=== PATIENT | female | born 1975 | race African-American/Black ===

== ENCOUNTER 2017-11-21 09:22 | Inpatient (IN) | payer OTHER ==
[2017-11-21 09:52] VITALS: BMI 31.4
[2017-11-21] MEDS ORDERED: Acetaminophen 500 MG TAB PO SCH (10:45)
[2017-11-21] MEDS ORDERED: Morphine 10 MG/ML VIAL IM SCH (10:45)
[2017-11-21] MEDS ORDERED: Ondansetron HCl/PF 4 MG/2 ML Vial IVP PRN ×2 (10:56→17:08)
[2017-11-21] MEDS ORDERED: Lactated Ringer's 1,000 ML IV SCH (11:00)
[2017-11-21 11:31] LABS: Hemoglobin 9.4 g/dL (12.0-16.0); Mean Corpuscular HGB CONC 32.4 g/dL (32.0-36.0); Mean Corpuscular Hemoglobin 27.8 pg (27.0-31.0); Mean Corpuscular Volume 85.7 fL (78.0-98.0); RBC Distribution Width 12.7 % (11.5-14.5); Red Blood Cell (RBC) Count 3.37 mill/uL (4.20-5.40); White Blood Cell (WBC) Count 15.1 thou/uL (4.8-10.8)
[2017-11-21 11:36] LABS: INR-International Normal Ratio 1.2; PTT 27.3 SEC (22.9-36.1); Prothrombin Time 14.8 SEC (12.0-14.7)
[2017-11-21 11:44] LABS: Mean Platelet Volume 7.8 fL (7.4-10.4); Platelet Count 106 thou/uL (130-400)
[2017-11-21] MEDS ORDERED: Morphine 4 MG/ML VIAL ONE (11:44)
[2017-11-21] MEDS ORDERED: Morphine 4 MG/ML VIAL SLOW IVP SCH ×2 (11:45→15:30)
[2017-11-21 11:52] LABS: ALT (SGPT) 32 U/L (8-55); AST (SGOT) 29 U/L (5-34); Alkaline Phosphatase 60 U/L (40-150); Anion Gap 13 mmol/L (10-20); BUN (Urea Nitrogen) 5 mg/dL (7.0-18.7); Bilirubin, Total 0.5 mg/dL (0.2-1.2); Calc. Creatinine Clearance 165 mL/min (70-130); Carbon Dioxide 20 mmol/L (22-29); Chloride 106 mmol/L (98-107); Estimated GFR-MDRD Greater than 90; Globulin 2.6 g/dL (2.4-3.5); Glucose 96 mg/dL (70-105); Potassium 3.7 mmol/L (3.5-5.1); Protein, Total 6.6 g/dL (6.0-8.3); Sodium 135 mmol/L (136-145)
[2017-11-21] MEDS: Misoprostol 200 MCG TAB VAG SCH ×3 (11:53→18:19)
[2017-11-21] MEDS ORDERED: Labetalol HCl 100 MG/20 ML VIAL ONE (12:09)
[2017-11-21] MEDS ORDERED: Labetalol HCl 100 MG/20 ML VIAL SLOW IVP SCH ×2 (12:15→17:15)
--- NOTE | 2017-11-21 12:27 | HP ---
DATE OF SERVICE: 11/21/2017 PRIMARY OB: Dr. Buchanan HISTORY OF PRESENT ILLNESS: The patient is a 42-year-old female with an intrauterine at 22 weeks and 1 day, presenting with acute onset of abdominal pain after 2 o'clock this morning after having intercourse. The patient denies any vaginal bleeding, any leakage of fluid. She reports her pain is very intense and constant. The patient reports that she just discovered her in recent weeks and had her first visit a couple weeks ago at which time no heart tones were found. PAST MEDICAL HISTORY: Negative. PAST SURGICAL HISTORY: Negative. ALLERGIES: No known drug allergies. MEDICATIONS: vitamins. OB LABS: Unavailable. REVIEW OF SYSTEMS: The patient denies fever, fall, chest pain, shortness of breath, nausea, vomiting, diarrhea, constipation, new rashes, vaginal bleeding, leakage of fluid, urinary urgency or frequency, hip pain, knee pain, muscle weakness. PHYSICAL EXAMINATION: VITAL SIGNS: Blood pressure is 146/93, heart rate of 107, respiratory rate 18, satting 100% on room air, temperature 98.3. GENERAL: She appears to be in significant distress with pain. She is alert and oriented, cooperative and pleasant to interact with. HEENT: Head is normocephalic, atraumatic. LUNGS: Clear to auscultation bilaterally. HEART: Regular rate and rhythm and slightly tachycardic. ABDOMEN: Exquisitely tender on the right side and on the lower pelvis. EXTREMITIES: Nontender, nonedematous. PELVIC: Cervix is closed, with no bleeding. On bedside ultrasound placenta appears to be extremely enlarged with suspected concealed abruption and fetus has no heart tones. LABORATORY DATA: Available labs at this time show a white count of 15, hemoglobin 9.4, hematocrit 28.9, platelets of 106. PT of 14.8, INR 1.2, PTT of 27. Fibrinogen of 130. Urine drug screen positive for cocaine Review of record confirms heart tones and a negative drug screen just a couple weeks prior to this encounter. ASSESSMENT AND PLAN: The patient is a 42-year-old female with an intrauterine at 22 weeks by stated due date who has presented with what I believe is an acute abruption based on clinical symptoms, bedside ultrasound findings now being confirmed by available labs. The patient currently does have 2 IV sites, is being bolused IV fluids, had 4 units of packed red blood cells we will be transfusing to replace her dropping platelet and fibrinogen and other coagulation factors with appropriate blood products. We have also placed 400 mcg of Cytotec vaginally to proceed with induction. If the patient remains stable, we will proceed as planned. If not, we may need to consider alternate methods for delivery. Drug screen results reviewed with the patient. She denies cocaine use. States she is not in a healthy enviroment where she lives. Also states she was given 2 pills from a friend when she was not feeling well. She did not know what was in them. BRIDGERD
[2017-11-21] MEDS: Lactated Ringer's 1,000 ML IV SCH ×2 (12:49→17:50)
--- NOTE | 2017-11-21 13:22 | ULT ---
LIMITED OB ULTRASOUND: HISTORY: Intrauterine demise. Concern for abruption. COMPARISON: None. TECHNIQUE: Real-time izaguirre-scale, color Doppler, and spectral analysis of the gravid uterus was performed. FINDINGS: There are no heart tones demonstrated. There is a large heterogeneous mass interposed between the myometrium and what appears to be the placenta. This may reflect a contained abruption. Small v olume fluid within the cervix. IMPRESSION: 1. Intrauterine demise with no heart tones. 2. There appears to be a concealed abruption along the anterior wall with a large hematoma between t he myometrium and the placenta. The placenta is not well seen. Sindhu, the nurse taking care of the patient, was notified of the findings via telephone at 12:40 p.m. CODE CR POS: GILMAR
[2017-11-21 16:58] LABS: Amphetamine Not Detected (NotDetected); Barbiturates Screen Not Detected (NotDetected); Benzodiazepine Screen Not Detected (NotDetected); Cocaine Metabolite Screen Detected (NotDetected); Medtox Control Line Valid? VALID (VALID); Medtox Reader # READER 4; Methadone Not Detected (NotDetected); Methamphetamine Not Detected (NotDetected); Opiate Screen Detected (NotDetected); Oxycodone Screen Not Detected (NotDetected); Phencyclidine (PCP) Not Detected (NotDetected); THC/Cannabinoid Screen Not Detected (NotDetected); Tricyclic Screen Not Detected (NotDetected)
[2017-11-21] MEDS ORDERED: Promethazine HCl 25 MG/ML VIAL IM PRN (17:08)
[2017-11-21] MEDS ORDERED: Zolpidem Tartrate 5 MG TAB PO PRN (17:08)
[2017-11-21] MEDS ORDERED: diphenhydrAMINE 50 MG/ML VIAL IVP PRN (17:08)
[2017-11-21] MEDS ORDERED: Naloxone HCl 0.4 mg/ml Vial IV PRN (17:08)
[2017-11-21] MEDS ORDERED: diphenhydrAMINE 50 MG/ML VIAL IM PRN (17:08)
[2017-11-21] MEDS ORDERED: diphenhydrAMINE 25 MG CAP PO PRN (17:08)
[2017-11-21] MEDS ORDERED: fentaNYL Citrate/PF 2,000 MCG in Sodium Chloride 0.9% 60 ML IV PRN (17:08)
[2017-11-21] MEDS ORDERED: Communication Order-Pharmacy FS SCH (17:15)
[2017-11-21 17:38] LABS: Fibrinogen 265 mg/dL (253-463); INR-International Normal Ratio 1.1; PTT 20.6 SEC (22.9-36.1); Prothrombin Time 14.5 SEC (12.0-14.7)
[2017-11-21 17:57] LABS: FSP-Qualitative ABNORMAL (Normal); FSP-Semiquantitative >=20 & <40 mcg/mL (Less than 5)
[2017-11-21 18:40] LABS: Band 3 % (5-11); Eosinophils 1 % (0-10); Hemoglobin 9.4 g/dL (12.0-16.0); Lymphocytes 2 % (21-51); MDiff Complete? YES; Mean Corpuscular Volume 85.3 fL (78.0-98.0); Monocytes 3 % (0-10); Neutrophil 91 % (42-75); PLT Morphology Comment Appears Decreased; Platelet Count 90 thou/uL (130-400); Red Blood Cell (RBC) Count 3.24 mill/uL (4.20-5.40); White Blood Cell (WBC) Count 14.2 thou/uL (4.8-10.8)
[2017-11-21] MEDS ORDERED: NIFEdipine XL 30 MG TAB PO SCH (19:15)
[2017-11-21] MEDS ORDERED: Lidocaine 1% (PF) 30 ML VIAL ONE (21:27)
[2017-11-21] MEDS ORDERED: NS / Oxytocin 40 units/1000ml 0 ML ONE (21:28)
[2017-11-22] MEDS ORDERED: Bisacodyl 10 MG SUPP PR PRN (01:43)
[2017-11-22] MEDS ORDERED: Zolpidem Tartrate 5 MG TAB PO PRN (01:43)
[2017-11-22] MEDS ORDERED: Milk Of Magnesia 30 ML UDCUP PO PRN (01:43)
[2017-11-22] MEDS ORDERED: NS / Oxytocin 40 units/1000ml 1,000 ML IV SCH (01:43)
[2017-11-22] MEDS ORDERED: Ondansetron HCl/PF 4 MG/2 ML Vial IVP PRN (01:43)
[2017-11-22] MEDS ORDERED: Adacel (T-DAP) 0.5 ML VIAL IM ONE (02:00)
[2017-11-22] MEDS: Misoprostol 200 MCG TAB VAG SCH (03:31)
[2017-11-22] MEDS: Ibuprofen 800 MG TAB PO SCH ×2 (04:54→15:11)
[2017-11-22 05:27] LABS: Hemoglobin 9.2 g/dL (12.0-16.0); Mean Corpuscular HGB CONC 34.2 g/dL (32.0-36.0); Mean Corpuscular Hemoglobin 29.2 pg (27.0-31.0); Mean Corpuscular Volume 85.4 fL (78.0-98.0); Mean Platelet Volume 8.5 fL (7.4-10.4); Platelet Count 97 thou/uL (130-400); Red Blood Cell (RBC) Count 3.13 mill/uL (4.20-5.40); White Blood Cell (WBC) Count 13.3 thou/uL (4.8-10.8)
--- NOTE | 2017-11-22 06:13 | OP ---
DATE OF SERVICE: 11/21/2017 PRIMARY OB: Dr. Claudy Buchanan at [facility] ER. PROCEDURE: The patient is a 42-year-old female who presented to Labor and Delivery with abdominal pa in and was noted to have an IUFD with a large abruption concealed abruption. She delivered a nonviab le male infant with a gestational age of 22 weeks on 11/21/2017 at 2126 by vaginal delivery. Followi ng delivery of the baby placenta delivered with large consolidated clot formation behind all the plac ental bed, bleeding was moderate to minimal at time of delivery for a short period of time and was qu ickly placed under control. There were no lacerations. Quantitative blood loss is pending; however, estimated blood loss is around 300 mL of clot and 100 mL of liquid blood. Dr. Cuadra is the [facility] physician. Fetus appears normal with gross inspection. Placenta sent to pathology. The patien t is stable in the .
--- NOTE | 2017-11-22 08:50 | DIS ---
DATE OF ADMISSION: 11/21/2017 DATE OF DISCHARGE: 11/22/2017 ADMITTING DIAGNOSES: 1. Intrauterine . 2. Concealed abruption. DISCHARGE DIAGNOSES: 1. Intrauterine . 2. Concealed abruption. PROCEDURE: Blood transfusion 1 unit of packed red blood cells, 10 units of cryoprecipitate, nonviabl e vaginal delivery. CONSULTATIONS: None. HOSPITAL COURSE: The patient is a 42-year-old female who presented to Labor and Delivery with acute onset of abdominal pain beginning earlier on the morning of arrival. On evaluation, patient was note d to have an IUFD with what appeared to be a concealed abruption. Workup confirmed our suspicions wi th fibrinogen in the 100s, platelets 106, slightly elevated PTT and INR. The patient during her stay was transfused 1 unit of packed red blood cells and 10 units of cryoprecipitate. Patient was induce d by Cytotec and ultimately delivered a nonviable male fetus with the placenta. Evaluation of the pl acenta showed a complete abruption with large consolidative clots at the bed. The fetus otherwise ap peared to have a normal anatomy grossly. Her workup also included a drug screen positive for cocaine , which the patient denies taking. Delivery was uncomplicated and the patient did not have any exces sive bleeding. After delivery and recovery, patient was sent to the for continued care. Today is day 1. The patient reports that she is tolerating p.o., voiding on her own, havi ng good pain control and decreased lochia. The patient is still tearful of the events that have just followed and desire discharge home. DISCHARGE PHYSICAL EXAMINATION: VITAL SIGNS: Blood pressure is 126/77, temperature 99.1, pulse of 89, respiratory rate of 16. GENERAL: She appears to be in no acute distress. She is alert and oriented, cooperative and pleasan t to interact with. HEAD: Normocephalic, atraumatic. ABDOMEN: Fundus is firm. EXTREMITIES: Nontender, nonedematous. LABORATORY DATA: Her post-delivery hemoglobin is 9.2, hematocrit 26.7, platelets 97,000. DISCHARGE INSTRUCTIONS: The patient is being discharged to home with ibuprofen to be taken as needed for pain. She has instructions to follow up with her primary OB, Dr. Buchanan in 1-2 weeks. She has b een given instructions to seek medical attention sooner if she experiences pain, increasing bleeding or fever.
[2017-11-22] MEDS ORDERED: Docusate Calcium (SURFAK) 240 MG CAP PO SCH (09:00)
[2017-11-22] MEDS ORDERED: NIFEdipine XL 30 MG TAB PO SCH (09:00)
[2017-11-22] MEDS: Ferrous Sulfate 325 MG TAB PO SCH ×2 (09:41→17:34)
[2017-11-22 16:59] VITALS: BP 123/78; TEMP 98.9
[2017-11-22] MEDS ORDERED: Measles/Mumps/Rubella 10 MCG/0.5 ML VIAL SC ONE (17:30)
== END 2017-11-22 18:00 | disposition home or self-care (01) | DRG 774 ==
LOC: L&D/OP 09:22 → L&D 12:11 → 3SE 11-22 00:52
PROVIDERS: ADMIT Obstetrics & Gynecology; ATTEND Obstetrics & Gynecology
PROC: 10E0XZZ Delivery of Products of Conception, External Approach (ICD-10-PCS; principal; 2017-11-21)
PROC: 30233N1 Transfusion of Nonautologous Red Blood Cells into Peripheral Vein, Percutaneous Approach (ICD-10-PCS; 2017-11-21)
PROC: 3E0P7VZ Introduction of Hormone into Female Reproductive, Via Natural or Artificial Opening (ICD-10-PCS; 2017-11-21)
DX: O45.92 Premature separation of placenta, unspecified, second trimester (principal); O36.4XX0 Maternal care for intrauterine death, not applicable or unspecified; Z3A.22 22 weeks gestation of pregnancy; Z37.1 Single stillbirth
CPT/HCPCS: 36415; 36430; 51702; 76815; 80053; 80306; 85027; 85362; 85384; 85610; 85730; 86850; 86900; 86901; 90707; 99285; J2001; J2270; J2405; J3010; J7050; P9012; P9016

== ENCOUNTER 2018-10-23 14:56 | Emergency (ER) | payer OTHER ==
[2018-10-23 16:10] LABS: #Eosinphils 0.2 thou/uL (0.0-0.7); #Lymphocytes 1.9 thou/uL (1.20-3.40); #Monocytes 0.9 thou/uL (0.11-0.59); #Neutrophils 4.8 thou/uL (1.40-6.50); %Basophils 0.6 % (0.0-1.0); %Eosinophils 2.3 % (0.0-10.0); %Lymphocytes 23.9 % (21.0-51.0); %Monocytes 11.8 % (0.0-10.0); %Neutrophils 61.3 % (42.0-75.0); Hemoglobin 11.5 g/dL (12.0-16.0); Mean Corpuscular Hemoglobin 28.6 pg (27.0-31.0); Mean Corpuscular Volume 86.6 fL (78.0-98.0); Mean Platelet Volume 7.3 fL (7.4-10.4); Platelet Count 245 thou/uL (130-400); RBC Distribution Width 12.9 % (11.5-14.5); Red Blood Cell (RBC) Count 4.03 mill/uL (4.20-5.40); White Blood Cell (WBC) Count 7.8 thou/uL (4.8-10.8)
[2018-10-23 16:33] LABS: ALT (SGPT) 18 U/L (8-55); AST (SGOT) 15 U/L (5-34); Albumin 3.7 g/dL (3.5-5.0); Alkaline Phosphatase 31 U/L (40-150); Anion Gap 11 mmol/L (10-20); BUN (Urea Nitrogen) 6 mg/dL (7.0-18.7); Bilirubin, Total 0.2 mg/dL (0.2-1.2); Calc. Creatinine Clearance 0 mL/min (70-130); Calcium 9.7 mg/dL (7.8-10.44); Carbon Dioxide 20 mmol/L (22-29); Chloride 108 mmol/L (98-107); Estimated GFR-MDRD Greater than 90; Globulin 2.8 g/dL (2.4-3.5); Glucose 107 mg/dL (70-105); Potassium 3.7 mmol/L (3.5-5.1); Protein, Total 6.5 g/dL (6.0-8.3); Sodium 135 mmol/L (136-145)
[2018-10-23 16:40] LABS: Bilirubin Negative (Negative); Blood, Urine Trace (Negative); Clarity Clear (Clear); Glucose, Urine (Dipstick) Normal (Negative); Leukocyte Negative Leu/uL (Negative); Nitrite Negative (Negative); Protein, Urine (Dipstick) 10 mg/dL (Neg-Trace); Urobilinogen Normal mg/dL (Less than 2); WBC/HPF 0-3 HPF (0-3)
[2018-10-23 16:46] LABS: Bacteria/HPF None Seen HPF (None Seen)
== END 2018-10-23 19:00 | disposition home or self-care (01) ==
LOC: ERS 14:56
DX: O16.2 Unspecified maternal hypertension, second trimester (principal); Z3A.14 14 weeks gestation of pregnancy
CPT/HCPCS: 36415; 80053; 81003; 85025; 96360

== ENCOUNTER 2018-11-25 13:23 | Outpatient (CLI) | payer OTHER ==
--- NOTE | 2018-11-25 15:13 | ULT ---
Obstetric sonogram HISTORY: evaluation. Second trimester gestation. FINDINGS: Cephalic presentation. Cervix is closed and 4.1 cm. Amniotic fluid is within normal limits. Grade 0 placenta is posterior. No gross intracranial abnormalities. spine and kidneys are intact as visualized. Three-vessel cord shows a normal insertion. Four-chamber heart shows motion at 142 bpm. Measurements are as follows: Biparietal diameter 19 weeks 5 days. Head circumference 19 weeks 3 days. Abdominal circumference 19 weeks 3 days. Femur length 19 weeks 4 days. [place] 17th percentile. Estimated date of delivery based on today's sonogram 04/17/2019. IMPRESSION: Single viable intrauterine gestation. Estimated gestational age based on today's sonogram 19 weeks 4 days.
== END 2018-11-25 13:24 | disposition home or self-care (01) ==
LOC: BICULT 13:23
PROVIDERS: ATTEND Family Medicine
DX: Z34.82 Encounter for supervision of other normal pregnancy, second trimester (principal); Z3A.19 19 weeks gestation of pregnancy
CPT/HCPCS: 76805

== ENCOUNTER 2018-11-30 18:28 | Emergency (ER) | payer OTHER | END 2018-11-30 20:45 | disposition home or self-care (01) | LOC: ERS 18:28 | DX: O99.612 Diseases of the digestive system complicating pregnancy, second trimester (principal); K04.7 Periapical abscess without sinus; K02.9 Dental caries, unspecified; Z3A.20 20 weeks gestation of pregnancy | CPT/HCPCS: 99282 ==

== ENCOUNTER 2019-02-24 15:44 | Day surgery (SDC) | payer OTHER ==
[2019-02-24 16:21] VITALS: BMI 35.0
--- NOTE | 2019-02-24 17:45 | ULT ---
US Biophysical Profile and umbilical artery ultrasound: 02/24/2019 4:26 PM CLINICAL HISTORY: Nonreactive stress test in doctor's office.. COMPARISON: None. FINDINGS: heart rate: 160 bpm. ZEINA: 13.3 cm Biophysical profile: 8 of 8 Ultrasound of the umbilical artery shows persistent flow in diastole with a normal systolic to diasto lic ratio. IMPRESSION: 1. Normal biophysical profile 2. Normal umbilical artery ultrasound
== END 2019-02-24 18:13 | disposition home health service (06) ==
LOC: L&D/OP 15:44
PROVIDERS: ATTEND Family Medicine
DX: Z01.89 Encounter for other specified special examinations (principal)
CPT/HCPCS: 76819; 93975

== ENCOUNTER 2019-03-13 12:51 | Day surgery (SDC) | payer OTHER ==
[2019-03-13] MEDS ORDERED: hydrALAZINE 20 MG/ML VIAL SLOW IVP PRN (14:38)
--- NOTE | 2019-03-13 14:38 | PDOC.EVN ---
Event Note - Event Note Event Note: OBGYN At Bedside. See full dictation.
--- NOTE | 2019-03-13 15:20 | PDOC.EVN ---
Event Note - Event Note Event Note: RN exam was closed/th/high....no LOF or VB. I have reviewed the FHT strip and seen the pateint. We are clear for DC to home. NST reactive.
--- NOTE | 2019-03-13 15:24 | HP ---
LOCATION: Recovery room in Labor and Delivery (as the LDR and triage rooms are full). TIME OF EVALUATION: Time of evaluation was roughly 1430 hours to 1447 hours. CHIEF COMPLAINT: Possible contractions at 35 weeks. This is a patient of Dr. Casiano. HISTORY OF PRESENT ILLNESS: This is a 43-year-old , G5, P4, living 4 (one history of an intrauterine demise at 25 weeks, which was her immediate past , and also one set of twins) who is currently with an EDC of 04/14/2020 given her EGA of 35 weeks and 3 days. She is here for possible irregular contractions. She denies vaginal bleeding or leakage of fluid. She has good movement. She denies any other medical complications up to this time. PAST MEDICAL HISTORY: Negative. PAST SURGICAL HISTORY: Negative. ALLERGIES: NONE. SOCIAL HISTORY: Significant for smoking prepregnancy, but none during this gestation. OB HISTORY: She has one set of twins, and her last ended in 25-week intrauterine demise. She has no births and all deliveries were vaginal. MEDICATIONS: None. PHYSICAL EXAMINATION: VITAL SIGNS: Her blood pressure is 120/75, pulse is in the 80s, respirations are 14 to 16 by observation and they are unlabored. GENERAL: The patient is in no acute distress. ABDOMEN: Size consistent with dates. PELVIC: There is no gross evidence of leakage of fluid or ruptured membranes or vaginal bleeding. Cervix is currently pending as aNbila, the patient's nurse, is about to perform that at bedside. I just left the bedside as the patient had to go urinate prior to the cervical exam. On the external monitor, heart tones are in the 130s to 140s with moderate variability and accelerations, there are no decelerations. No contractions on tocodynamometer, although there is some uterine irritability. ASSESSMENT: This is a 43-year-old , G5, P4, living 4, whose last ended in a 25-week demise, who is here at 35 weeks and 3 days for suspected few and irregular contractions. History is most compatible with [place]. PLAN: 1. Cervical assessment pending. 2. Nonstress test performed as antepartum surveillance and is reassuring. 3. No evidence of maternal or injury/harm at this time. 4. Her OB history was reviewed by me in person at bedside and the unpredictability of the demise was discussed with her, as occurred in the last gestation. 5. No evidence of a need for immediate induction at this time. 6. No evidence of preeclampsia. Job ID: [id number]
== END 2019-03-13 15:22 | disposition home health service (06) ==
LOC: L&D/OP 12:51
PROVIDERS: ATTEND Family Medicine
DX: O47.03 False labor before 37 completed weeks of gestation, third trimester (principal); O09.523 Supervision of elderly multigravida, third trimester; Z87.891 Personal history of nicotine dependence; Z3A.35 35 weeks gestation of pregnancy

== ENCOUNTER 2019-03-17 12:05 | Day surgery (SDC) | payer OTHER ==
[2019-03-17 12:26] VITALS: BP 136/86; TEMP 98.8
[2019-03-17 12:28] VITALS: BMI 35.2
[2019-03-17] MEDS ORDERED: hydrALAZINE 20 MG/ML VIAL SLOW IVP PRN (13:43)
--- NOTE | 2019-03-17 15:28 | ULT ---
BIOPHYSICAL PROFILE: INDICATIONS: Nonreactive NST in office. COMPARISON: Biophysical profile dated 02/24/2019. FINDINGS: There is a single live intrauterine gestation in vertex presentation. The placenta is seen along the right aspect of the uterus. ZEINA measures 13 cm. Cardiac activity is at 149 beats per minute. There is 2/2 for breathing. There is 2/2 for tone. There is 2/2 for movement. The amniotic fluid level is 2/2. Biophysical profile score is 8/8. IMPRESSION: Biophysical profile score 8/8. Verbal report was relayed by the dietetic technician registered to the L&D NurseSydney at the time of this exam.
--- NOTE | 2019-03-17 20:26 | HP ---
PRIMARY OB: Dr. Shon Casiano. CHIEF COMPLAINT: Nonreactive NST in clinic. HISTORY OF PRESENT ILLNESS: The patient is a 43-year-old, G5, P3 female with an intrauterine at 36 weeks and a history of gestational diabetes, presented to Labor and Delivery from the clinic after having a nonreactive NST. The patient denies any recent illness, fever, or fall. She does report she has had a cough. Denies nausea, vomiting. Denies diarrhea. Reports significant constipation. States that she goes about once every week and this has been for much for . The patient denies any new rashes, hip problems, knee problems, muscle weakness, vaginal bleeding, leakage of fluid, urinary urgency or frequency. PAST MEDICAL HISTORY: Negative. PAST SURGICAL HISTORY: Negative. ALLERGIES: NO KNOWN DRUG ALLERGIES. SOCIAL HISTORY: Reports history of smoking. Denies drug or alcohol use. MEDICATIONS: vitamins. Also significant, the patient has a history of a 25-week demise. OB LABS: Unavailable at the time of dictation. REVIEW OF SYSTEMS: Per HPI. PHYSICAL EXAMINATION: VITAL SIGNS: Blood pressure of 133/77, heart rate of 111, respiratory rate 18, saturating 100% on room air, temperature 99.0. GENERAL: She appears to be in no acute distress. She is alert, oriented, cooperative, and pleasant to interact with. HEAD: Normocephalic and atraumatic. LUNGS: Clear to auscultation bilaterally. HEART: Regular rate and rhythm. ABDOMEN: Gravid, soft, nontender. EXTREMITIES: Nontender, nonedematous. heart tracing shows a baseline in the 130s with moderate long-term variability, positive 15 x 15 accelerations, no significant decelerations. Tocometer is quiet with an isolated contraction. BPP is 8/8 with an ZEINA of 13. ASSESSMENT/PLAN: The patient is a 43-year-old female with an intrauterine at 36 weeks and a history of a 25-week demise and a nonreactive NST in clinic. Here, the patient is reassuring heart tracing and BPP. The patient is being discharged to home with labor precautions. She has an appointment with Dr. Casiano in the next week, which we have encouraged that she keep. Job ID: [id number]
== END 2019-03-17 14:00 | disposition home or self-care (01) ==
LOC: L&D/OP 12:05
PROVIDERS: ATTEND Family Medicine
DX: O36.8330 Maternal care for abnormalities of the fetal heart rate or rhythm, third trimester, not applicable or unspecified (principal); O24.419 Gestational diabetes mellitus in pregnancy, unspecified control; O09.523 Supervision of elderly multigravida, third trimester; O09.293 Supervision of pregnancy with other poor reproductive or obstetric history, third trimester; Z3A.36 36 weeks gestation of pregnancy; Z87.891 Personal history of nicotine dependence
CPT/HCPCS: 59025; 76819; 99282

== ENCOUNTER 2019-03-21 14:20 | Day surgery (SDC) | payer OTHER ==
[2019-03-21 14:48] VITALS: BP 131/83; TEMP 99.3; BMI 35.2
[2019-03-21] MEDS ORDERED: hydrALAZINE 20 MG/ML VIAL SLOW IVP PRN (14:55)
--- NOTE | 2019-03-21 16:52 | ULT ---
ULTRASOUND BIOPHYSICAL PROFILE: DATE: 03/21/2019 HISTORY: 43-year-old female with nonreactive nonstress test. FINDINGS: breathin tone: 2 movement: 2 Amniotic fluid volume: 2 heart rate: 147 bpm ZEINA: 10.5 cm lie: Vertex Placenta: Left lateral. IMPRESSION: Normal biophysical profile score of 8 out of 8, excluding the nonstress test.
== END 2019-03-21 16:36 | disposition home or self-care (01) ==
LOC: L&D/OP 14:20
PROVIDERS: ATTEND Family Medicine
DX: O36.8390 Maternal care for abnormalities of the fetal heart rate or rhythm, unspecified trimester, not applicable or unspecified (principal); O09.529 Supervision of elderly multigravida, unspecified trimester; Z3A.00 Weeks of gestation of pregnancy not specified
CPT/HCPCS: 76819

== ENCOUNTER 2019-03-23 19:15 | Inpatient (IN) | payer OTHER ==
[~2019-03-23 19:15] MED LIST: Bupivacaine 0.25% HCL 30 ML VIAL ONE
[2019-03-23] MEDS ORDERED: Carboprost 250 MCG/ML AMP IM PRN (19:34)
[2019-03-23] MEDS ORDERED: Lidocaine 1% (PF) 30 ML VIAL SC PRN (19:34)
[2019-03-23] MEDS ORDERED: HYDROcodone/Acetaminophen 5/325 mg Tablet PO PRN ×2 (19:34)
[2019-03-23] MEDS ORDERED: NS / Oxytocin 40 units/1000ml 1,000 ML IV PRN (19:34)
[2019-03-23] MEDS ORDERED: Butorphanol Tartrate 1 MG/ML VIAL SLOW IVP PRN (19:34)
[2019-03-23] MEDS ORDERED: Misoprostol 200 MCG TAB PR PRN (19:34)
[2019-03-23] MEDS ORDERED: Ibuprofen 800 MG TAB PO PRN (19:34)
[2019-03-23] MEDS ORDERED: Ondansetron PF 4 MG/2 ML Vial IVP PRN (19:34)
[2019-03-23] MEDS ORDERED: Promethazine HCl 25 MG/ML VIAL IM PRN (19:34)
[2019-03-23] MEDS ORDERED: hydrALAZINE 20 MG/ML VIAL SLOW IVP PRN (19:34)
[2019-03-23] MEDS ORDERED: Diphenoxylate HCl/Atropine Tablet PO PRN (19:34)
[2019-03-23 19:44] VITALS: BMI 35.2
[2019-03-23] MEDS ORDERED: NS w/ Oxytocin 10 units 500 ML IV SCH (19:45)
[2019-03-23] MEDS ORDERED: Penicillin G Potassium 5 MILL.UNITS in Sodium Chloride 0.9% 100 ML IVPB SCH (19:45)
[2019-03-23 20:11] LABS: Hemoglobin 10.3 g/dL (12.0-16.0); Mean Corpuscular HGB CONC 33.7 g/dL (32.0-36.0); Mean Corpuscular Hemoglobin 27.9 pg (27.0-31.0); Mean Corpuscular Volume 82.8 fL (78.0-98.0); Mean Platelet Volume 7.5 fL (7.4-10.4); Platelet Count 199 thou/uL (130-400); Red Blood Cell (RBC) Count 3.71 mill/uL (4.20-5.40); White Blood Cell (WBC) Count 9.5 thou/uL (4.8-10.8)
[2019-03-23 20:49] LABS: Syphilis Antibody Nonreactive (Nonreactive); Syphilis Antibody Index 0.03 S/CO (<1.00 Non-Reactive)
[2019-03-23] MEDS ORDERED: Acetaminophen 500 MG TAB PO SCH (22:45)
[2019-03-23] MEDS: Misoprostol 100 MCG TAB PO SCH (22:50)
[2019-03-23 22:59] LABS: HBSAg Index 0.13 S/CO (0-0.99); Hep B Surf Ag Non-Reactive S/CO (NonReactive)
[2019-03-23] MEDS ORDERED: Penicillin G Potassium 5 MILL.UNITS VIAL ONE (23:00)
[2019-03-24] MEDS: Penicillin G 2.5 MILL.units 2.5 MILL.UNITS in Premix Bag 1 BAG IVPB SCH ×4 (03:00→16:03)
[2019-03-24] MEDS: NS w/ Oxytocin 10 units 500 ML IV SCH (07:59)
[2019-03-24] MEDS ORDERED: Fentanyl 4 mcg/Bup 0.1% Cadd 100 ML ONE ×2 (10:23→17:17)
[2019-03-24] MEDS: Lactated Ringer's 1,000 ML IV SCH ×2 (10:30→15:22)
[2019-03-24] MEDS: Fentanyl 4 mcg/Bupivacaine 0.1% Cassette 100 ML EPIDURAL SCH ×2 (10:55→17:21)
[2019-03-24] MEDS ORDERED: diphenhydrAMINE 50 MG/ML VIAL IVP PRN ×2 (11:01→18:44)
[2019-03-24] MEDS ORDERED: ePHEDrine/0.9% NaCl/PF SYRINGE 50 mg/10 ml SLOW IVP PRN (11:01)
[2019-03-24] MEDS ORDERED: Naloxone HCl 0.4 mg/ml Vial IVP PRN ×4 (11:01→18:44)
[2019-03-24] MEDS ORDERED: Acetaminophen 325 MG TAB PO PRN (11:01)
[2019-03-24] MEDS ORDERED: Ondansetron PF 4 MG/2 ML Vial IVP PRN (11:01)
[2019-03-24] MEDS ORDERED: Lactated Ringer's 500 ML IV PRN (11:01)
[2019-03-24] MEDS ORDERED: Promethazine HCl 25 MG/ML VIAL IM PRN ×3 (11:01→18:44)
[2019-03-24] MEDS ORDERED: Communication Order-Pharmacy FS SCH ×2 (11:15→18:45)
[2019-03-24] MEDS ORDERED: Bicitra 30 ML UDCUP ONE (18:31)
[2019-03-24] MEDS ORDERED: Promethazine HCl 25 MG SUPP PR PRN (18:44)
[2019-03-24] MEDS ORDERED: Promethazine HCl 25 MG/ML VIAL SLOW IVP PRN (18:44)
[2019-03-24] MEDS ORDERED: Naloxone HCl 0.4 mg/ml Vial IV PRN (18:44)
[2019-03-24] MEDS ORDERED: Ketorolac Tromethamine 30 MG/ML VIAL IVP PRN (18:44)
[2019-03-24] MEDS ORDERED: Ondansetron HCl/PF 4 MG/2 ML Vial IVP PRN (18:44)
[2019-03-24] MEDS ORDERED: MORPHINE 5 MG/10 ML PF VIAL ONE (18:49)
[2019-03-24] MEDS ORDERED: EPINEPHrine 1 MG/ML AMP ONE (18:50)
[2019-03-24] MEDS ORDERED: Oxytocin 10 UNITS/ML VIAL ONE ×2 (18:50→19:01)
[2019-03-24] MEDS ORDERED: Lidocaine 2% 10 ML INJ ONE (18:50)
[2019-03-24] MEDS ORDERED: Ondansetron PF 4 MG/2 ML Vial ONE (18:50)
[2019-03-24] MEDS ORDERED: Fentanyl 100 MCG/2 ML VIAL ONE (18:52)
[2019-03-24] MEDS ORDERED: PHENYLEPHRINE-NS 100 MCG/ML 10 ML SYRINGE ONE ×2 (19:10→19:40)
[2019-03-24] MEDS ORDERED: Azithromycin 500 MG VIAL ONE (19:18)
[2019-03-24] MEDS ORDERED: Midazolam HCl 2 mg/2 ml Vial ONE (19:28)
[2019-03-24] MEDS ORDERED: EPINEPHrine 1 MG/10 ML Abboject SYRINGE ONE (19:40)
[2019-03-24] MEDS ORDERED: ePHEDrine/0.9% NaCl/PF SYRINGE 50 mg/10 ml ONE (20:25)
[2019-03-24] MEDS ORDERED: Ketorolac Tromethamine 30 MG/ML VIAL ONE (22:18)
[2019-03-25] MEDS ORDERED: Ondansetron PF 4 MG/2 ML Vial IVP PRN (01:43)
[2019-03-25] MEDS ORDERED: hydrALAZINE 20 MG/ML VIAL SLOW IVP PRN (01:43)
[2019-03-25] MEDS ORDERED: diphenhydrAMINE 25 MG CAP PO PRN (01:43)
[2019-03-25] MEDS ORDERED: NS / Oxytocin 40 units/1000ml 1,000 ML IV SCH (01:43)
[2019-03-25] MEDS ORDERED: Bisacodyl 10 MG SUPP PR PRN (01:43)
--- NOTE | 2019-03-25 02:46 | OP ---
DATE OF PROCEDURE: 03/24/2019 PREOPERATIVE DIAGNOSES: 1. 37 weeks . 2. Advanced maternal age. 3. Chronic hypertension. 4. Non-reassuring heart tones/ intolerance to labor. POSTOPERATIVE DIAGNOSES: 1. 37 weeks . 2. Advanced maternal age. 3. Chronic hypertension. 4. Non-reassuring heart tones/ intolerance to labor. 5. Cord entanglement. 6. OP presentation. SALES PROJECT COORDINATOR: Dr. Lima. INTRAOPERATIVE CONSULT: Akbar Zambrano MD ANESTHESIA: Epidural. DESCRIPTION OF PROCEDURE: After informed consent was obtained from the patient, she was taken to the operating room where epidural anesthesia was re-bolused. She was prepped and draped in the usual sterile fashion. A Pfannenstiel incision was created with a #10 scalpel blade and carried down to the fascia. The fascia was nicked in the midline. The fascial incision was extended transversely with Becerril scissors. The superior fascial segment was grasped with Nan and elevated, and the underlying rectus muscles were with blunt dissection and Becerril scissors. This was repeated with the inferior fascial segment. The rectus muscles were divided in the midline with blunt digital dissection. The bladder blade was inserted at this point. Blood tinged urine was already noted in the Meraz. The lower uterine segment was incised in a low-transverse fashion with a clean #10 scalpel blade. The hysterotomy was extended with blunt dissection. was found to be in OP presentation. The vertex delivered onto the operative field followed by the remainder of the infant, which was delivered uneventfully. The oropharynx and nares were bulb suctioned, and a vigorous male infant was handed to the staff in attendance. Cord blood was obtained. The placenta was expressed and removed with traction on the umbilical cord. The uterus was exteriorized and freed of clots and debris. There was a deep extension in the left corner of the hysterotomy into the parametrium. Attempts to suture ligate a lacerated branch of the uterine artery were unsuccessful and intraoperative consult was obtained with Dr. Zambrano, who was able to secure bleeding sites. Please refer to his operative note for details. The uterus was then repaired with a running locking suture of one Monocryl followed by a second layer in the center, where a second defect was noted from sutures pulling through the thin lower segment. A kaikgh-ln-gkifb suture was placed with 2-0 Monocryl in the center for hemostasis, which was observed. The abdomen was copiously irrigated with saline. Seprafilm was applied to the repaired uterine incision and the anterior uterine fundus. The uterus was then returned to the abdomen. Hemostasis was again observed. The peritoneum was repaired with a running suture of 3-0 Vicryl. The fascia was repaired with a running suture of zero PDS. Interrupted sutures of 3-0 Vicryl were placed in the subdermal layer to reapproximate the skin, which was closed skin alessandra. Sponge and instrument counts were correct x4. was taken to the nursery in stable condition and patient to the recovery room in stable condition. At the end of the case, pale yellow urine was noted to be draining in the Meraz catheter tubing. FINDINGS: Viable male infant, 6 pounds 0 ounces. Apgars 8 and 9 at 1 and 5 minutes respectively. COMPLICATIONS: Multiple lacerations of the lower uterine segment. QUANTITATIVE BLOOD LOSS: 1130 mL. Job ID: [id number]
--- NOTE | 2019-03-25 03:23 | CON ---
DATE OF CONSULTATION: 03/24/2019 REQUESTING PHYSICIAN: Shon Casiano MD CONSULTING PHYSICIAN: Akbar Zambrano MD I was asked to come to the operating room in Labor and delivery by Dr. Casiano. He had just performed a section and had an extension of the left uterine angle that had continued to bleed. I scrubbed and then could see that at the apex of the left uterine angle there was a bleeding vessel, consistent with a lacerated uterine artery on that side. A Fabio clamp was placed above and below the laceration and a transfixion suture was applied. Of note is the fact that the only tissue incorporated in the clamp was that of the cervix below and the uterus above. Once these transfixion sutures were placed, good control of bleeding was seen. The remainder of the uterine incision was repaired with Monocryl suture. In the middle, an imbricating stitch of smaller Monocryl was used for complete hemostasis. At the completion of this repair, the uterine angle and the remainder of the uterine incision was reviewed carefully and there was no evidence of further bleeding. The case was then turned back over to Dr. Casiano for closure of the anterior abdominal wall. Job ID: [id number] [facility]
[2019-03-25] MEDS: Ondansetron PF 4 MG/2 ML Vial IVP PRN ×2 (03:26→08:31)
[2019-03-25] MEDS: Ketorolac Tromethamine 30 MG/ML VIAL IVP SCH ×3 (03:26→14:02)
[2019-03-25] MEDS ORDERED: Meperidine HCl/PF 25 MG/ML VIAL IM PRN (06:45)
[2019-03-25] MEDS: Misoprostol 100 MCG TAB PO SCH ×2 (07:30→07:35)
[2019-03-25] MEDS: Lactated Ringer's 1,000 ML IV SCH (07:31)
[2019-03-25] MEDS: Penicillin G 2.5 MILL.units 2.5 MILL.UNITS in Premix Bag 1 BAG IVPB SCH (07:32)
[2019-03-25] MEDS: NS w/ Oxytocin 10 units 500 ML IV SCH (07:33)
[2019-03-25] MEDS ORDERED: Adacel (T-DAP) 0.5 ML SYRINGE IM ONE (09:00)
[2019-03-25] MEDS: NIFEdipine XL 30 MG TAB PO SCH (09:24)
[2019-03-25] MEDS: Ferrous Sulfate 325 MG TAB PO SCH (10:16)
[2019-03-25] MEDS: Docusate Calcium (SURFAK) 240 MG CAP PO SCH ×2 (10:16→20:27)
[2019-03-25] MEDS: Prenatal Vitamin 1 TAB PO SCH (10:16)
[2019-03-25 11:06] LABS: Mean Corpuscular HGB CONC 32.3 g/dL (32.0-36.0); Mean Corpuscular Hemoglobin 27.2 pg (27.0-31.0); Mean Corpuscular Volume 84.3 fL (78.0-98.0); Mean Platelet Volume 7.5 fL (7.4-10.4); Platelet Count 174 thou/uL (130-400); Red Blood Cell (RBC) Count 3.69 mill/uL (4.20-5.40); White Blood Cell (WBC) Count 14.1 thou/uL (4.8-10.8)
[2019-03-25] MEDS ORDERED: Sodium Chloride 0.9% 10 ML ONE (13:59)
[2019-03-25] MEDS: HYDROcodone/Acetaminophen 5/325 mg Tablet PO PRN ×2 (16:37→23:28)
[2019-03-25] MEDS: Simethicone Chewable 80 MG TAB PO PRN (20:27)
[2019-03-25] MEDS: Ibuprofen 800 MG TAB PO SCH (20:27)
[2019-03-26] MEDS ORDERED: Ibuprofen 800 MG TAB ONE (03:55)
[2019-03-26] MEDS ORDERED: diphenhydrAMINE 25 MG CAP ONE (04:03)
[2019-03-26] MEDS: Ferrous Sulfate 325 MG TAB PO SCH ×3 (12:28→21:53)
[2019-03-26] MEDS: Ibuprofen 800 MG TAB PO SCH ×2 (12:31→21:53)
[2019-03-26] MEDS: NIFEdipine XL 30 MG TAB PO SCH (12:32)
[2019-03-26] MEDS: Docusate Calcium (SURFAK) 240 MG CAP PO SCH ×2 (12:32→21:53)
[2019-03-26] MEDS: Prenatal Vitamin 1 TAB PO SCH (12:33)
[2019-03-26] MEDS: HYDROcodone/Acetaminophen 5/325 mg Tablet PO PRN (16:59)
[2019-03-26] MEDS: Simethicone Chewable 80 MG TAB PO PRN (21:53)
[2019-03-27] MEDS: HYDROcodone/Acetaminophen 5/325 mg Tablet PO PRN ×4 (03:56→17:52)
[2019-03-27] MEDS: Simethicone Chewable 80 MG TAB PO PRN (05:44)
[2019-03-27] MEDS: Ibuprofen 800 MG TAB PO SCH ×2 (05:44→12:55)
[2019-03-27] MEDS: NIFEdipine XL 30 MG TAB PO SCH (08:07)
[2019-03-27] MEDS: Prenatal Vitamin 1 TAB PO SCH (08:08)
[2019-03-27] MEDS: Docusate Calcium (SURFAK) 240 MG CAP PO SCH (08:08)
[2019-03-27] MEDS: Ferrous Sulfate 325 MG TAB PO SCH (08:09)
[2019-03-27 12:12] VITALS: BP 145/88; TEMP 98.5
== END 2019-03-27 18:33 | disposition home or self-care (01) | DRG 787 ==
LOC: L&D 19:23 → 3SW 03-25 03:08
PROVIDERS: ADMIT Family Medicine; ATTEND Family Medicine
PROC: 10D00Z1 Extraction of Products of Conception, Low, Open Approach (ICD-10-PCS; principal; 2019-03-24)
PROC: 30233K1 Transfusion of Nonautologous Frozen Plasma into Peripheral Vein, Percutaneous Approach (ICD-10-PCS; 2019-03-25)
PROC: 30233N1 Transfusion of Nonautologous Red Blood Cells into Peripheral Vein, Percutaneous Approach (ICD-10-PCS; 2019-03-25)
DX: O76 Abnormality in fetal heart rate and rhythm complicating labor and delivery (principal); O10.02 Pre-existing essential hypertension complicating childbirth; O69.82X0 Labor and delivery complicated by other cord entanglement, without compression, not applicable or unspecified; Z3A.37 37 weeks gestation of pregnancy; Z37.0 Single live birth
CPT/HCPCS: 36415; 36430; 51702; 85014; 85018; 85027; 86780; 86850; 86900; 86901; 87340; J0171; J0360; J0456; J0595; J0690; J1200; J1885; J2001; J2250; J2274; J2405; J2540; J2590; J3010; J3490; P9016; P9059; Q0163; S0020